=== PATIENT | male | born 1955 | race Hispanic/Latino ===

== ENCOUNTER 2020-02-23 06:42 | Day surgery (SDC) | payer BC ==
[2020-02-23] MEDS ORDERED: ASPIRIN EC 325 MG TAB PO ONE (07:16)
[2020-02-23] MEDS ORDERED: HEPARIN/NS 5000 UNIT/500ML 1,000 ML IR ONE ×2 (08:18→10:37)
[2020-02-23 08:25] LABS: Basophils # (Auto) 0.1 K/mm3 (0.0-0.1); Basophils % (Auto) 1.2 % (0.0-1.8); Eosinophils # (Auto) 0.1 K/mm3 (0.0-0.4); Eosinophils % (Auto) 1.5 % (0.0-4.3); Hemoglobin 11.1 gm/dl (11.8-15.2); Lymphocytes # (Auto) 1.8 K/mm3 (1.2-5.4); Lymphocytes % (Auto) 28.4 % (13.4-35.0); Mean Corpuscular HGB Conc 32 % (32-34); Mean Corpuscular Volume 82 fl (84-94); Monocytes # (Auto) 0.5 K/mm3 (0.0-0.8); Monocytes % (Auto) 8.4 % (0.0-7.3); Platelet Count 228 K/mm3 (140-440); Red Blood Count 4.29 M/mm3 (3.65-5.03); Red Cell Distribution Width 15.3 % (13.2-15.2)
[2020-02-23 08:26] LABS: INR 0.93 (0.87-1.13); Partial Thromboplastin Time 31.5 Sec. (24.2-36.6)
[2020-02-23 08:28] LABS: BUN/Creatinine Ratio 34; Blood Urea Nitrogen 24 mg/dL (9-20); Calcium 9.1 mg/dL (8.4-10.2); Hemolysis Index 7
[2020-02-23] MEDS: SODIUM CHLORIDE 0.9% 500 ML 500 ML IV SCH ×2 (08:51→10:37)
[2020-02-23] MEDS: MIDAZOLAM 2 MG/2 ML INJ ONE ×2 (09:16→09:28)
[2020-02-23] MEDS: fentaNYL 100 MCG/2 ML INJ ONE ×2 (09:16→09:28)
[2020-02-23] MEDS: LIDOCAINE (2%) 20 MG/1 ML VIAL 20 ML MDV INFILTRATI ONE ×3 (09:17→09:50)
[2020-02-23] MEDS: HEPARIN 10,000 UNITS/10 ML VIAL ONE ×2 (09:18→09:31)
[2020-02-23] MEDS: VERAPAMIL 5 MG/2 ML INJ ONE ×2 (09:18→09:31)
[2020-02-23] MEDS: NITROGLYCERIN SYRINGE 3 ML ONE ×2 (09:18→09:31)
--- NOTE | 2020-02-23 10:16 | Short Stay Summary ---
Short Stay Documentation Date of service: 02/23/20 - History H&P: obtained from office - Allergies and Medications Current Medications: Allergies No Known Allergies Allergy (Unverified 02/23/20 07:16) Home Medications Medication Instructions Recorded Confirmed Last Taken Type AtorvaSTATin [Lipitor] 20 mg PO QHS 02/23/20 02/23/20 02/22/20 History 1 tab Furosemide [Lasix TAB] 40 mg PO BID 02/23/20 02/23/20 02/22/20 History 40 Metoprolol [Lopressor] 25 mg PO DAILY 02/23/20 02/23/20 02/22/20 History 1 tab Omeprazole 20 mg PO DAILY 02/23/20 02/23/20 02/22/20 History 1 tab Potassium Chloride [K-Dur] 20 meq PO QDAY 02/23/20 02/23/20 02/22/20 History 1 tab diphenhydrAMINE [Benadryl CAP] 25 mg PO BID 02/23/20 02/23/20 02/22/20 History 1 tab Active Medications Hydrocodone Bitart/Acetaminophen (Hydrocodone/Acetaminophen 5-325 Mg Tab) 1 each PO Q4H PRN PRN Reason: Pain, Moderate (4-6) Sodium Chloride (Nacl 0.9% 500 Ml) 500 mls @ 50 mls/hr IV DIRECT MICHAEL Stop: 02/23/20 17:59 Last Admin: 02/23/20 08:51 Dose: 50 mls/hr Documented by: Tramadol HCl (Tramadol 50 Mg Tab) 50 mg PO Q4H PRN PRN Reason: Pain, Mild (1-3) - Brief post op/procedure progress note Date of procedure: 02/23/20 Pre-op diagnosis: sob Post-op diagnosis: same Procedure: see report Anesthesia: local Estimated blood loss: minimal Pathology: none - Disposition Condition at discharge: Good Disposition: - TO HOME OR SELFCARE - Discharge Diagnoses (1) CAD (coronary artery disease) Status: Acute Qualifiers: Coronary Disease-Associated Artery/Lesion type: [place] artery Associated angina: with stable angina (2) Aortic stenosis, severe Status: Acute Short Stay Discharge Plan Activity: advance as tolerated Diet: low fat, low cholesterol, low salt Wound: keep clean and dry Follow up with: PRIMARY CARE, [Primary Care Provider] - 7 Days
[2020-02-23] MEDS ORDERED: traMADol 50 MG TAB PO PRN (10:30)
[2020-02-23] MEDS ORDERED: HYDROcodone/ACETAMINOPHEN 5-325 MG TAB PO PRN (10:30)
[2020-02-23] MEDS ORDERED: SODIUM CHLORIDE 0.9% 500 ML 500 ML ONE (10:35)
[2020-02-23] MEDS ORDERED: MIDAZOLAM 2 MG/2 ML INJ ONE (10:37)
[2020-02-23] MEDS ORDERED: HEPARIN 10,000 UNITS/10 ML VIAL ONE (10:37)
[2020-02-23] MEDS ORDERED: fentaNYL 100 MCG/2 ML INJ ONE (10:38)
[2020-02-23] MEDS ORDERED: LIDOCAINE (2%) 20 MG/1 ML VIAL 20 ML MDV INFILTRATI ONE (10:38)
--- NOTE | 2020-02-23 11:06 | Cardiac Catherization Report ---
LEFT HEART CATHETERIZATION CLINICAL INFORMATION: The patient is a 65-year-old patient who was in the hospital for congestive heart failure symptoms, found to have severe aortic stenosis, here for left heart catheterization. The patient was done with moderate sedation started at 9:28, finished at 9:59, which is 31 minutes of moderate sedation. Procedure was done via the right radial artery and right common femoral artery. A 6-[place] radial sheath and 5-[place] groin sheath placed in. Because of unable to get pressure, I put 2 catheters to get 2 waveforms from the radial sheath. Left system engaged with JL3.5 catheter. Left main is large and patent. LAD is a large LAD, proximal 50%, diagonal 1 small to medium caliber and patent. After that, there is 80% lesion. Rest of LAD is patent, mild luminal irregularities. Circumflex is a medium caliber vessel that is patent, goes to medium caliber OM1 that is patent with mild luminal irregularities. RCA engaged with JR4, is a large dominant vessel, patent, mild luminal irregularities. PDA, PLV are medium caliber vessels that are patent, able to cross the aortic valve and found to have normal LV function, LVEDP of 29 mmHg, LV was 182/30, aortic is 121/76, mean gradient was 46 mmHg, [id number] gradient was 61 mmHg with severe aortic stenosis. Pullback gradients pulled back. Equalization of pressures noted. 5-[place] catheters were all taken over guidewire, 5-[place] groin sheath was discontinued. Manual pressure held. A 6-[place] radial sheath was discontinued. Manual pressure held. No hematoma, no bleeding. SUMMARY: Left main patent, LAD, proximal 50%, mid 80%, circumflex patent, OM1 patent, RCA large, dominant, patent. PDA, PLV patent, normal LV function with severe aortic stenosis, mean gradient of 46 mmHg, [id number] gradient 61 mmHg. The patient will be referred to surgery for either TAVR and PCI of the LAD or open heart NOWAK to LAD and aortic valve replacement. Discussed this with the patient and the patient's family. JOB# [id number] VRM/NTS
[2020-02-23 13:50] VITALS: BP 117/66
== END 2020-02-23 14:30 | disposition home or self-care (01) ==
LOC: CATHLABREC 06:42
PROVIDERS: ATTEND Internal Medicine
DX: I11.0 Hypertensive heart disease with heart failure (principal); I50.32 Chronic diastolic (congestive) heart failure; I35.0 Nonrheumatic aortic (valve) stenosis; I25.5 Ischemic cardiomyopathy; E78.2 Mixed hyperlipidemia; I25.10 Atherosclerotic heart disease of native coronary artery without angina pectoris; E66.09 Other obesity due to excess calories; Z79.899 Other long term (current) drug therapy; Z72.89 Other problems related to lifestyle; Z68.35 Body mass index [BMI] 35.0-35.9, adult; Z82.49 Family history of ischemic heart disease and other diseases of the circulatory system
CPT/HCPCS: 36415; 80048; 85025; 85610; 85730; 93005; 93458; 99156; 99157; C1769; C1894; J1644; J2250; J3010; J7040; Q9967